=== PATIENT | male | born 1950 | race Caucasian/White ===

== ENCOUNTER 2020-12-08 06:54 | Outpatient (NON) | payer OTHER, SELFPAY ==
[2020-12-08 19:24] LABS: SARS-CoV-2 RNA PCR Negative
== END 2020-12-08 06:55 ==
PROVIDERS: PCP Family Medicine; Visit Provider Physician Assistant
DX: R09.89 Other specified symptoms and signs involving the circulatory and respiratory systems (principal); Z20.822 Contact with and (suspected) exposure to COVID-19
CPT/HCPCS: C9803; U0003